=== PATIENT | female | born 1970 | race Caucasian/White ===

== ENCOUNTER 2017-08-10 05:31 | Emergency (ER) | payer OTHER ==
[2017-08-10 06:03] VITALS: BMI 20.3
[2017-08-10] MEDS ORDERED: ONDANSETRON 4 MG/2 ML VIAL IVPUSH ONE (06:09)
[2017-08-10] MEDS ORDERED: SODIUM CHLORIDE 0.9% 1000 ML INFUS.BAG IV ONE (06:10)
[2017-08-10] MEDS ORDERED: ONDANSETRON 4 MG/2 ML VIAL ONE (06:40)
--- NOTE | 2017-08-10 06:42 | PDOC ---
History of Present Illness - General Chief Complaint: Pain, Acute Stated Complaint: PAIN Time Seen by Provider: 08/10/17 06:09 - History of Present Illness Initial Comments: 08/10/17 06:39 CHIEF COMPLAINT: R flank pain HISTORY OF PRESENT ILLNESS: 47 yo F with hx of "thyroid condition" and asthma presents to ED with sudden onset R flank pain that began at 2:30 in the morning. Patient reports that the pain is 10/10 and unbearable and causing her to feel nauseous. She reports that the pain "wraps around the side to the back and comes and goes." She denies any fever, chills, vomiting, diarrhea. She denies any dysuria, urinary frequency, urgency, or hematuria. PAST MEDICAL HISTORY: as per HPI FAMILY HISTORY: Denies SOCIAL HISTORY: Denies tobacco, alcohol, illicit drug use. SURGICAL HISTORY: 3 c-sections ALLERGIES: PCN, ceclor, sulfa drugs REVIEW OF SYSTEMS as per HPI PHYSICAL EXAM General Appearance: Uncomfortable-appearing, appropriately dressed. HEENT: EOMI, PERRLA, normal ENT inspection, normal voice, TMs normal, pharynx normal. No conjunctival pallor. No photophobia, scleral icterus. Respiratory/Chest: Lungs CTAB. Cardiovascular: RRR. S1, S2. Gastrointestinal/Abdominal: Normal bowel sounds. Abdomen soft, non-distended. No tenderness or rebound tenderness. No organomegaly, pulsatile mass, guarding , hernia, hepatomegaly, splenomegaly. Musculoskeletal/Extremities: R CVA tenderness. FROM of all extremities, normal capillary refill. Pelvis Stable. No tenderness to extremities, pedal edema, swelling, erythema or deformity. Integumentary: Appropriate color, dry, warm. No cyanosis, erythema, jaundice or rash Neurologic: first assistant manager II-XII intact. Fully oriented, alert. Appropriate mood/affect. Motor strength 5/5. No appreciable EOM palsy, facial droop or sensory deficit. Past History - Past Medical History Allergies/Adverse Reactions: Allergies Allergy/AdvReac Type Severity Reaction Status Date / Time cefaclor [From Ceclor] Allergy Verified 08/10/17 06:01 Penicillins Allergy Verified 08/10/17 06:01 Sulfa (Sulfonamide Allergy Verified 08/10/17 06:01 Antibiotics) - Suicide/Smoking/Psychosocial Hx Smoking History: Never smoked Have you smoked in the past 12 months: No Information on smoking cessation initiated: No Hx Alcohol Use: No Drug/Substance Use Hx: No *Physical Exam - Vital Signs Last Vital Signs Temp Pulse Resp BP Pulse Ox 97.9 F 70 18 113/55 100 08/10/17 06:01 08/10/17 06:01 08/10/17 06:01 08/10/17 06:01 08/10/17 06:01 Medical Decision Making - Medical Decision Making 08/10/17 06:42 47 yo F with hx of "thyroid condition" and asthma presents to ED with sudden onset R flank pain that began at 2:30 in the morning. -UA, UCx -CBC, CMP -IVF, Toradol, Zofran Case discussed in detail with oncoming emergency provider including history, physical exam and ancillary studies. In brief, this patient is being seen in the ED for a chief complaint of: R flank pain Plan for disposition as follows: pending Oncoming NPA Pasha has assumed care for the patient and will complete the evaluation and treatment. *DC/Admit/Observation/Transfer - Referrals Referrals: ON STAFF,NOT [Primary Care Provider] - - Patient Instructions - Post Discharge Activity
[2017-08-10] MEDS ORDERED: KETOROLAC TROMETHAMINE 30 MG/1 ML VIAL IVPUSH ONE (06:53)
[2017-08-10] MEDS ORDERED: KETOROLAC TROMETHAMINE 30 MG/1 ML VIAL ONE (06:54)
[2017-08-10 07:34] LABS: BASO % 0.3 % (0-2.0); EOS % 0.1 % (0-4.5); HEMATOCRIT 42.3 % (32.4-45.2); HEMOGLOBIN 13.4 GM/dL (10.7-15.3); LYMPH % 12.1 % (8-40); MCH 25.8 pg (25.7-33.7); MCHC 31.7 g/dl (32.0-36.0); MEAN CELL VOLUME 81.6 fl (80-96); MEAN PLT VOLUME 9.5 fl (7.5-11.1); MONO % 2.9 % (3.8-10.2); NEUT % 84.6 % (42.8-82.8); PLATELET COUNT 336 K/MM3 (134-434); RBC 5.19 M/mm3 (3.60-5.2); RDW 15.2 % (11.6-15.6)
[2017-08-10 07:36] LABS: PH,URINE 5.5 (5.0-8.0); URINE APPEARANCE CLEAR; URINE BILIRUBIN NEGATIVE (NEGATIVE); URINE BLOOD 3+ (NEGATIVE); URINE COLOR LT. YELLOW; URINE GLUCOSE (UA) NEGATIVE (NEGATIVE); URINE KETONE NEGATIVE (NEGATIVE); URINE LEUK ESTERASE NEGATIVE (NEGATIVE); URINE NITRITE NEGATIVE (NEGATIVE); URINE PROTEIN NEGATIVE (NEGATIVE); URINE UROBILINOGEN 0.2 mg/dL (0.2-1.0)
[2017-08-10 08:01] LABS: ALBUMIN 3.9 g/dl (3.4-5.0); ANION GAP 12 (8-16); BLOOD UREA NITROGEN 14 mg/dL (7-18); CALCIUM 8.7 mg/dL (8.5-10.1); CHLORIDE 105 mmol/L (98-107); CO2 23 mmol/L (21-32); GLUCOSE,RANDOM 119 mg/dL (74-106); POTASSIUM 3.5 mmol/L (3.5-5.1); SGOT/AST 28 U/L (15-37); SGPT/ALT 33 U/L (12-78); SODIUM 140 mmol/L (136-145)
[2017-08-10 08:03] LABS: ALK PHOS 123 U/L (45-117); BILIRUBIN,TOTAL 0.4 mg/dL (0.2-1.0); TOT PROT 7.9 g/dl (6.4-8.2)
--- NOTE | 2017-08-10 08:05 | PDOC ---
*Physical Exam - Vital Signs Last Vital Signs Temp Pulse Resp BP Pulse Ox 97.9 F 70 18 113/55 100 08/10/17 06:01 08/10/17 06:01 08/10/17 06:01 08/10/17 06:01 08/10/17 06:01 - Physical Exam General Appearance: Yes: Nourished, Appropriately Dressed. No: Apparent Distress (sitting on exam bed. States that her pain is a 3/10 currently) Respiratory/Chest: positive: Lungs Clear, Normal Breath Sounds. negative: Respiratory Distress, Accessory Muscle Use, Rales, Rhonchi, Wheezing Cardiovascular: positive: Regular Rhythm, Regular Rate, S1, S2 (present). negative: Murmur Gastrointestinal/Abdominal: positive: Normal Bowel Sounds, Tender (RLQ), Flat, Soft. negative: Pulsatile Mass, Guarding, Rebound, Other (negative rovsing, obturator, psoas signs. ) Musculoskeletal: positive: Normal Inspection, CVA Tenderness (R). negative: Decreased Range of Motion, Vertebral Tenderness Integumentary: positive: Normal Color, Dry, Warm Neurologic: positive: hot dip plating supervisor II-XII NML intact, Fully Oriented, Alert, Normal Mood/ Affect, Normal Response, Motor Strength 5/5 ED Treatment Course - LABORATORY CBC & Chemistry Diagram: 08/10/17 07:14 08/10/17 07:14 - ADDITIONAL ORDERS Additional order review: Laboratory Results 08/10/17 07:15 Urine Color Lt. yellow Urine Appearance Clear Urine pH 5.5 Ur Specific [place] 1.025 Urine Protein Negative Urine Glucose (UA) Negative Urine Ketones Negative Urine Blood 3+ H Urine Nitrite Negative Urine Bilirubin Negative Urine Urobilinogen 0.2 Ur Leukocyte Esterase Negative 08/10/17 07:14 RBC 5.19 MCV 81.6 MCHC 31.7 L RDW 15.2 MPV 9.5 Neutrophils % 84.6 H Lymphocytes % 12.1 Monocytes % 2.9 L Eosinophils % 0.1 Basophils % 0.3 - Medications Given in the ED: ED Medications Discontinued Medications Generic Name Dose Route Start Last Admin Trade Name Freq PRN Reason Stop Dose Admin Ketorolac Tromethamine 30 mg 08/10/17 06:53 08/10/17 07:13 Toradol Injection - IVPUSH 08/10/17 06:54 Not Given ONCE ONE Ondansetron HCl 8 mg 08/10/17 06:09 08/10/17 06:55 Zofran Injection IVPUSH 08/10/17 06:10 8 mg ONCE ONE Administration Sodium Chloride 1,000 ml 08/10/17 06:10 08/10/17 06:55 Normal Saline - IV 08/10/17 06:11 1,000 ml ONCE ONE Administration Medical Decision Making - Medical Decision Making 08/10/17 09:07 Sign out received from Casandra Bowers NP. Pt. is a 47-year-old female with past medical history of hypothyroidism who presents to the emergency department with sudden onset of colicky right flank pain since 2:30 this morning. I suspect a kidney stone at this time however, white count is 21 at this time. Patient also has some right lower quadrant tenderness on exam. Cannot exclude appendicitis at this time. Urinalysis shows 3+ blood. We will obtain CT abdomen and pelvis with IV contrast after urine has come back. 08/10/17 13:01 CTAP shows a 1-2mm kidney calclus impacted in the R RUJ with mild R sided hydronephrosis. No evidence of appendicitis. White count most likely d/t kidney infection/inhaled steroid use. Will d/c home on cipro at this time as pt cannot take penicillins, sulfa drugs, or cefaclor d/t allergies to cover urinary pathology. Explained to pt increased risk of tendon rupture with taking steroids. Told patient to avoid physical activity and signs and symptoms of tendon rupture. Pt. understands risks and signs and symptoms. Pt. to f/u with her primary care doctor. Urology referral given. Return precautions given. Will d/c home at this time with pain control. *DC/Admit/Observation/Transfer Diagnosis at time of Disposition: Renal calculus or stone - Discharge Dispostion Disposition: HOME Condition at time of disposition: Good Admit: No - Prescriptions Prescriptions: Ciprofloxacin HCl [Cipro] 500 mg PO BID #14 tablet Ibuprofen 800 mg PO TID #30 tablet Oxycodone HCl/Acetaminophen [Percocet 5-325 mg Tablet] 1 tab PO Q6H #10 tablet MDD 4 - Referrals Referrals: Dada Magallanes MD [Staff Physician] - - Patient Instructions Printed Discharge Instructions: DI for Kidney Stones Additional Instructions: You had a kidney stone as seen on your CAT scan today. Your also given antibiotics to cover a potential infection given her elevated white count. Your prescribed Cipro. Please take this medication twice a day for one week. Please avoid exercising during this timeframe as you are on inhaled steroids. Cipro does carry a black box warning for tendon rupture. If you feel increasingly sore have body aches please stop the medication and call your primary care doctor. Please drink plenty of fluids to help pass the stone including water and cranberry juice. Please follow up with urology referral has been provided for you. Return to the emergency department if you have worsening pain, fevers, nausea, vomiting or any changes in your symptoms. - Post Discharge Activity Forms/Work/School Notes: Back to Work
[2017-08-10 09:12] LABS: EPI CELLS FEW /HPF (FEW); URINE BACTERIA FEW /hpf (NONE SEEN)
[2017-08-10 09:17] VITALS: BP 116/74; PULSE 73; TEMP 98.3
[2017-08-10] MEDS ORDERED: ACETAMINOPHEN 1000 MG/100 ML VIAL (NON FORMULARY) IVPB ONE (09:36)
[2017-08-10] MEDS ORDERED: ACETAMINOPHEN INJECTION 100 ML IVPB ONE (09:39)
== END 2017-08-10 12:33 | disposition home or self-care (01) ==
LOC: JER 05:31
PROC: 3E033NZ Introduction of Analgesics, Hypnotics, Sedatives into Peripheral Vein, Percutaneous Approach (ICD-10-PCS; principal; 2017-08-10)
PROC: 3E0333Z Introduction of Anti-inflammatory into Peripheral Vein, Percutaneous Approach (ICD-10-PCS; 2017-08-10)
PROC: 3E033GC Introduction of Other Therapeutic Substance into Peripheral Vein, Percutaneous Approach (ICD-10-PCS; 2017-08-10)
DX: N13.2 Hydronephrosis with renal and ureteral calculous obstruction (principal)
CPT/HCPCS: 36415; 74177-TC; 80053; 81003; 81015; 84703; 85025; 87086; 99283-25

== ENCOUNTER 2023-08-26 03:28 | Emergency (ER) | payer OTHER ==
[2023-08-26 03:38] VITALS: RESP 18; BMI 33.6
[2023-08-26] MEDS ORDERED: KETOROLAC TROMETHAMINE 30 MG/1 ML VIAL ONE (04:02)
[2023-08-26] MEDS ORDERED: ACETAMINOPHEN INJECTION 100 ML IVPB ONE (04:03)
[2023-08-26] MEDS: KETOROLAC TROMETHAMINE 30 MG/1 ML VIAL IVPUSH ONE (04:10)
[2023-08-26] MEDS: SODIUM CHLORIDE 0.9% 500 ML INFUS.BAG IV ONE (04:11)
[2023-08-26 04:34] LABS: BASO % 0.3 % (0-2.0); EOS % 0.8 % (0-4.5); HEMATOCRIT 40.6 % (32.4-45.2); HEMOGLOBIN 13.6 GM/dL (10.7-15.3); LYMPH % 20.7 % (8-40); MCH 28.1 pg (25.7-33.7); MCHC 33.5 g/dl (32.0-36.0); MEAN CELL VOLUME 83.9 fl (80-96); MEAN PLT VOLUME 9.3 fl (7.5-11.1); MONO % 4.5 % (3.8-10.2); NEUT % 73.7 % (42.8-82.8); PLATELET COUNT 317 10^3/uL (134-434); RBC 4.84 M/mm3 (3.60-5.2); RDW 13.9 % (11.6-15.6); WHITE BLOOD COUNT 15.5 K/mm3 (4.0-10.0)
[2023-08-26 04:51] LABS: POTASSIUM 4.7 mmol/L (3.5-5.1)
[2023-08-26 04:53] LABS: CALCIUM 9.4 mg/dL (8.5-10.1)
[2023-08-26 04:54] LABS: ALBUMIN 3.5 g/dl (3.4-5.0); BLOOD UREA NITROGEN 21.7 mg/dL (7-18)
[2023-08-26 04:59] LABS: BILIRUBIN,TOTAL 0.4 mg/dL (0.2-1); TOT PROT 7.7 g/dl (6.4-8.2)
[2023-08-26 05:52] LABS: EPI CELLS >36 /uL (0-25.1); HYALINE CASTS 2 /uL (0-3.1); URINE APPEARANCE CLOUDY; URINE BACTERIA 619 /uL (0-1359); URINE BILIRUBIN NEGATIVE (NEGATIVE); URINE COLOR YELLOW; URINE GLUCOSE (UA) NEGATIVE (NEGATIVE); URINE KETONE NEGATIVE (NEGATIVE); URINE LEUK ESTERASE NEGATIVE (NEGATIVE); URINE NITRITE NEGATIVE (NEGATIVE); URINE PROTEIN 1+ (NEGATIVE); URINE WBC 40 /uL (0-25.8)
[2023-08-26 06:17] LABS: HCG,QUALITATIVE URINE NEGATIVE
[2023-08-26] MEDS: morphine CARPU-JECT 2 MG/1 ML DISP.SYRIN IVPUSH ONE (06:36)
[2023-08-26] MEDS ORDERED: TAMSULOSIN HCL 0.4 MG CAP ONE (06:37)
[2023-08-26] MEDS ORDERED: SIMETHICONE 80 MG TAB.CHEW (FP) ONE (06:37)
[2023-08-26] MEDS: TAMSULOSIN HCL 0.4 MG CAP PO ONE (06:47)
[2023-08-26] MEDS: SIMETHICONE 80 MG TAB.CHEW (FP) PO ONE (06:47)
[2023-08-26 07:01] VITALS: BP 120/63; PULSE 68; TEMP 98.4
== END 2023-08-26 07:01 | disposition home or self-care (01) ==
LOC: JER 03:28
PROC: 3E0333Z Introduction of Anti-inflammatory into Peripheral Vein, Percutaneous Approach (ICD-10-PCS; principal; 2023-08-26)
DX: R10.9 Unspecified abdominal pain (principal); R11.0 Nausea; N20.1 Calculus of ureter; R14.0 Abdominal distension (gaseous)
CPT/HCPCS: 36415; 74176-TC; 80053; 81003; 84703; 85025; 87086; 99284-25